=== PATIENT | female | born 1995 | race Caucasian/White ===

== ENCOUNTER 2017-08-12 08:39 | Observation (INO) ==
[2017-08-12 09:31] LABS: Amphetamine Screen,Urine Negative ng/mL (Cutoff=1000); Barbiturate Screen,Urine Negative ng/mL (Cutoff=200); Benzodiazepines Screen,Urine Negative ng/mL (Cutoff=200); Cannabinoid Screen,Urine Negative ng/mL (Cutoff = 50); Cocaine Screen,Urine Negative ng/mL (Cutoff= 300); Opiate Screen,Urine Negative ng/mL (Cutoff=300); Phencyclidine Screen,Urine Negative ng/mL (Cutoff=25)
[2017-08-12 09:35] LABS: Bilirubin,Urine Negative (Negative); Blood,Urine Negative (Negative); Clarity,Urine Cloudy (Clear); Color,Urine Yellow (Yellow); Glucose,Urine (UA) Normal (Normal); Ketones,Urine Negative (Negative); Leukocyte Esterase,Urine Negative (Negative); Nitrite,Urine Negative (Negative); Protein,Urine 100 mg/dL (Neg-Trace); Urobilinogen,Urine Normal (Normal)
[2017-08-12 09:37] LABS: Bacteria,Urine Moderate per hpf (None-Few); Hyaline Casts,Urine None Seen per lpf (None-Few); RBC,Urine 0-3 per hpf (0-3); Squamous Epithelial Cell,Urine Many per lpf (None-Few)
[2017-08-12 09:51] LABS: Amorphous Sediment,Urine Few (Few); Mucus,Urine Few (Few)
--- NOTE | 2017-08-12 11:08 | OB/GYN Progress Note ---
Date of Encounter: 08/12/17 Time of Encounter: 11:05 - Assessment and Plan (1) 36 weeks gestation of Current Visit: Yes Status: Acute (2) NST (non-stress test) reactive Current Visit: Yes Status: Acute (3) False labor Current Visit: Yes Status: Acute SVE 1/50/high, Negative pooling, negative nitrazine, negative fern. Discharge home with precautions. Subjective - Subjective Interval history: 22 year-old presenting at 36w4d with c/o leaking small amounts of fluid since last evening at 1930. She also c/o contractions that have been occuring on and off for the last month or so. She reports they were every [address] her this am but have decreased since she arrived in triage. Antepartum ROS: loss of fluid, movement normal, contractions, no vaginal bleeding Objective - Vital Signs Vital Signs: Intake and Output 08/11/17 08/12/17 08/12/17 23:59 07:59 15:59 Other: Weight 94 kg Patient Weight 08/12/17 23:59 Weight 94 kg - Exam FHR: category 1 FHR comments: NST reactive Auscultation: bilateral: normal Abdomen: Present: soft, gravid Uterus: Absent: tenderness Cervical dilation: 1 Cervix effacement: 50 station: high Comments: SSE with small amount thin, white, discharge. No pooling, negative nitrazine. Negative fern. - Labs Labs: Abnormal lab results Urine Clarity Cloudy (Clear) A 08/12/17 09:05 Urine Protein 100 mg/dL (Neg-Trace) H 08/12/17 09:05 Urine Microscopic WBC 5-15 per hpf (0-3) H 08/12/17 09:05 Ur Squamous Epith Cells Many per lpf (None-Few) H 08/12/17 09:05 Urine Bacteria Moderate per hpf (None-Few) H 08/12/17 09:05
== END 2017-08-12 11:15 | disposition home or self-care (01) ==
LOC: 1NENULAB
PROVIDERS: ADMIT Student in an Organized Health Care Education/Training Program; ATTEND Student in an Organized Health Care Education/Training Program

== ENCOUNTER 2017-08-19 17:27 | Observation (INO) ==
[2017-08-19 16:07] LABS: Bilirubin,Urine Negative (Negative); Blood,Urine Negative (Negative); Color,Urine Yellow (Yellow); Glucose,Urine (UA) Normal (Normal); Ketones,Urine Negative (Negative); Leukocyte Esterase,Urine Negative (Negative); Nitrite,Urine Negative (Negative); PH,Urine 6.5 pH Units (5.0-8.0); Protein,Urine 100 mg/dL (Neg-Trace); Specific Gravity,Urine 1.019 (1.010-1.025); Urobilinogen,Urine Normal (Normal)
[2017-08-19 16:08] LABS: Bacteria,Urine Few per hpf (None-Few); Hyaline Casts,Urine None Seen per lpf (None-Few); RBC,Urine 0-3 per hpf (0-3); Squamous Epithelial Cell,Urine Many per lpf (None-Few)
[2017-08-19 16:12] LABS: Basophils % 0.1 %; Eosinophils % 0.4 %; Hematocrit 31.5 % (35.3-44.9); Hemoglobin 10.1 g/dL (11.5-15.4); Immature Granulocytes % 0.6 % (0-4); Lymphocytes # 1.9 K/mcL (0.6-4.6); Lymphocytes % 27.5 %; Mean Corpuscular HGB Conc 32.1 g/dL (31.6-35.5); Mean Corpuscular Hemoglobin 25.6 pg (28.0-33.3); Mean Corpuscular Volume 79.7 fL (83.0-100.0); Mean Platelet Volume 12.4 fL (9.4-12.4); Monocytes # 0.5 K/mcL (0.0-1.3); Monocytes % 6.9 %; Neutrophils # 4.5 K/mcL (1.6-8.9); Platelet Count 190 K/mcL (140-400); Red Blood Count 3.95 M/mcL (3.82-4.97); Red Cell Distribution Width 13.9 % (11.5-14.5); Segmented Neutrophils % 64.5 %
[2017-08-19 16:18] LABS: Protein/Creatinine Ratio,Urine 1.27 mg/mg (0.00-0.20)
[2017-08-19 16:19] LABS: Yeast,Urine Few per hpf (None Seen)
[2017-08-19 16:20] LABS: Clarity,Urine Slightly Hazy (Clear)
[2017-08-19 16:32] LABS: Alanine Aminotransferase 12 Units/L (7-52); Aspartate Amino Transferase 21 Units/L (13-39); BUN/Creatinine Ratio 11 (6-26); Blood Urea Nitrogen 8 mg/dL (6-20); Lactate Dehydrogenase 165 Units/L (140-271); Uric Acid 5.4 mg/dL (2.3-7.6); eGFR For African Americans > 60 (> 60); eGFR For Non-African Americans > 60 (> 60)
[~2017-08-19 17:27] MED LIST: Famotidine 20 MG/2 ML VIAL IVP PRN; Metoclopramide 10 MG/2 ML VIAL IVP PRN; Naloxone 0.4 MG/ML INJ IVP PRN; Ondansetron 4 MG/2 ML VIAL IVP PRN; miSOPROStol 25 MCG TABLET PO PRN
--- NOTE | 2017-08-19 18:02 | OB/GYN History & Physical ---
Date of Encounter: 08/19/17 Time of Encounter: 17:59 Assessment and Plan (1) 37 weeks gestation of Current visit: Yes Status: Acute Admit to labor and delivery for induction secondary to protein/creatinin ratio of 1.27 GBS negative Intermittent auscultation for monitoring until epidural, and continuous monitoring per protocol Cytotec, pope, consider pitocin when able for induction of labor Nubain and epidural as desired Anticipate (2) PIH ( induced hypertension) Current visit: Yes Status: Acute Admits to labor and delivery Blood pressure is currently stable, if blood pressures increase will consider starting labetalol Cervical Pope, and Cytotec Encourage patient to use birthing ball Nubain and epidural as desired Anticipate Qualifiers: Trimester: third trimester Qualified Code(s): O13.3 - Gestational [ -induced] hypertension without significant proteinuria, third trimester (3) Gestational diabetes Current visit: Yes Status: Acute Qualifiers: Gestational diabetes mellitus control: diet-controlled Trimester: third trimester Qualified Code(s): O24.410 - Gestational diabetes mellitus in , diet controlled History of Present Illness Chief complaint: PIH evaluation HPI: Ms. Puga is a 22 year old female at 37 4/7 weeks gestation who presents to labor and delivery for PIH evaluation. She was at her PN visit and found to be hypertensive in the 160s systolic with 500 protein in her urine. Pt evaluated in L&D and found to have a Protein/Creatinin ratio of 1.27 and subsequently admitted for induction of labor. Her has been complicated by DM, she has not had HTN or been on antihypertensives during this . She states that earlier she had some changes in her vision, but those have resolved now. She also states she felt dizzy and worked up when she arrived but she she feels better now. She states that her mucous plug passed Wednesday. She has occasional contractions. No fluid or blood discharge vaginally. B/l pedal edema. Positive movement. Denies dizziness, CP, SOB, abd pain, n/v, dysuria. Blood Type O+ RPR negative Hep C non-reactive GBS negative Varicella IgG Antibody negative Rubella immune Past Med Surg Social Fam HX - Past Medical History Medical history: diabetes Psychiatric history: anxiety, depression - Past Surgical History Surgical History: other - Social History Smoking Status: Former smoker Smokeless Tobacco Status: No Alcohol use: none Drug use: none - Family History Father Living Status: Still Living Hx Family Cardiac Disorders: No Hx Family Respiratory Disorders: No Hx Family Cancer: No Hx Family GI Disorders: No Hx Family Genitourinary Disorders: No Hx Family Endocrine Disorder: Yes (diabetes) Hx Family Musculoskeletal Disorders: No Hx Family Neuromuscular Disorders: No Hx Family Neurologic Disorders: No Hx Family HEENT Disorders: No Hx Family Autoimmune Disorders: No Hx Family Reproductive Disorders: No Hx Family Psychosocial Disorders: No Hx Family Medical Disorders: No Obstetrical History - Pregnancies : 1 Para: 0 Term: 0 : 0 Ab's: 0 Livin Medications and Allergies No Known Home Drugs 08/12/17 [History] 3 Allergy/AdvReac Type Severity Reaction Status Date / Time No Known Allergies Allergy Verified 08/12/17 09:42 Review of System OB All systems PM: reviewed and no additional remarkable complaints except as stated Exam - Constitutional Constitutional: well developed, well nourished, no acute distress, average body habitus - HEENT HEENT: EOMI, PERRL, Normocephaly, Mucus Membranes Moist - Neck Neck exam: full ROM, normal inspection, trachea midline - Lungs Respiratory exam: CTAB - Cardiovascular Cardiovascular exam: RRR, +S1, +S2 - Abdomen Abdomen: Present: bowel sounds normal, gravid, non tender - Extremities Extremities exam: full ROM, normal capillary refill, normal inspection, pedal edema, radial pulses palpable and symmetrical Deep Tendon Reflex Grade: 2+ Normal - Vagina Vagina: Present: normal moisture - Cervix Dilation: 1 Effacement: 50 Station: -2 - Uterus Uterus exam: Present: normal size, normal contour - Anus/Rectum Anus/Rectum: Present: normal perianal skin Results Result Diagrams: 08/19/17 15:20 08/19/17 15:20 Abnormal lab results Hgb 10.1 g/dL (11.5-15.4) L 08/19/17 15:20 Hct 31.5 % (35.3-44.9) L 08/19/17 15:20 MCV 79.7 fL (83.0-100.0) L 08/19/17 15:20 MCH 25.6 pg (28.0-33.3) L 08/19/17 15:20 Urine Protein 100 mg/dL (Neg-Trace) H 08/19/17 15:20 Urine Microscopic WBC 5-15 per hpf (0-3) H 08/19/17 15:20 Ur Squamous Epith Cells Many per lpf (None-Few) H 08/19/17 15:20 Urine Yeast Few per hpf (None Seen) H 08/19/17 15:20 Protein/Creatinin Ratio 1.27 mg/mg (0.00-0.20) H 08/19/17 15:20 Urine Total Protein 165 mg/dL (1-14) H 08/19/17 15:20 All other labs normal. - VTE Reasons for not Prescribing Prophylaxis: Treatment not Indicated - Low risk for VTE
[2017-08-19] MEDS: Ringers Solution, Lactated 1,000 ML IVC SCH ×2 (18:43→23:41)
--- NOTE | 2017-08-19 19:09 | OB Labor Progress Note ---
Date of Encounter: 08/19/17 Time of Encounter: 19:06 Labor Progress Note - Subjective Subjective: Pt with no pain or contractions, starting induction - Cervix Cervix: 1/50/-2 - Heart Tones Heart Tones: 125/moderate/+accels/-decles - Philomath Philomath: irregular - Interventions Interventions: cervical pope placed with 60cc balloon - Plan Plan: Cytotec 50po cervical pope placed Encourage use of birthing ball clear liquids GBS negative anticipate
[2017-08-19] MEDS: *HR* Nalbuphine 20 MG/ML AMPUL IVP PRN (20:22)
[2017-08-19] MEDS ORDERED: Mag Hydrox/Al Hydrox/Simeth 30 ML UDC PO PRN (22:38)
[2017-08-19] MEDS ORDERED: Famotidine 20 MG/2 ML VIAL IVP SCH (22:45)
[2017-08-19] MEDS ORDERED: Oxytocin 20 units/ LR 1000 mL 20 UNIT/1,000 ML BAG IVC ONE (23:21)
--- NOTE | 2017-08-19 23:21 | OB Labor Progress Note ---
Date of Encounter: 08/20/17 Time of Encounter: 23:19 Labor Progress Note - Subjective Subjective: Mark came out. Pt states she is comfortable, feeling occasional contractions. - Vital Signs Vital Signs: BPs 130s/80s - Cervix Cervix: 5/75/-2 - Heart Tones Heart Tones: FHR 140s-150s, category 1 tracing - Oark Oark: irregular contractions - Interventions Interventions: none - Plan Plan: Plan to start pitocin, will increase as tolerated. encourage frequent repositioning, nubain and epidural as desired Antiipate .
[2017-08-19] MEDS ORDERED: Oxytocin 20 units/ LR 1000 mL 20 UNIT/1,000 ML BAG IVC SCH (23:30)
[2017-08-20] MEDS: *HR* Nalbuphine 20 MG/ML AMPUL IVP PRN (00:56)
--- NOTE | 2017-08-20 03:39 | OB Labor Progress Note ---
Date of Encounter: 08/20/17 Time of Encounter: 03:36 Labor Progress Note - Subjective Subjective: Pt coping well with contractions. - Cervix Cervix: 5-6/75/-2 - Heart Tones Heart Tones: 135/moderate/+accels/-decels - Estancia Estancia: 2-5 - Interventions Interventions: AROM for blood tinged clear fluid. IUPC placed without difficulty, - Plan Plan: Continue to increase pitocin per policy Epidural as desires Frequent repositioning encouraged Anticipate >
[2017-08-20] MEDS ORDERED: *HR* Ropivacaine/PF 0.2% 20 ML VIAL ONE (04:21)
[2017-08-20] MEDS ORDERED: Epidural Premix (fent/bupiv) 110 ML EP ONE ×2 (04:23→10:17)
[2017-08-20] MEDS ORDERED: *HR* FentaNYL (PF) 100 MCG/2 ML VIAL ONE (04:23)
--- NOTE | 2017-08-20 04:48 | Anesthesia Evaluation PreOp ---
Date of Encounter: 08/20/17 Time of Encounter: 04:46 - Past History Planned Operation: anushka Cardiac History: Denies any Significant Hx Pulmonary History: Other (seasonal allergies) [employer] History: Denies Any Significant HX Other Medical History: Diabetes Type II (gestational) Anesthesia History: No Prior Anesthetic Complications, Past Anesthesia : Yes Alcohol Use: none Drug use: none Medications and Allergies No Known Home Drugs 08/12/17 [History] 3 Allergy/AdvReac Type Severity Reaction Status Date / Time No Known Allergies Allergy Verified 08/12/17 09:42 - Meds/Allergy Pre-op Review Medications Reviewed: Yes Allergies Reviewed: Yes Beta Blockers on Current Med List: No Anesthesia Results - Labs 08/19/17 15:20 08/19/17 15:20 Anesthesia Exam O2 Sat Height 1.57 m Weight 96.7 kg Height: 62 Weight: 96 - HEENT Pupil (Motor): Pupils equal Mallampati: III Teeth: Normal Oral Opening: Greater than 3 - [employer] LOC: Oriented [employer] Motor: Normal RUE, Normal LUE, Normal RLE, Normal LLE, Normal Face [employer] Sensory: Normal: RUE, LUE, RLE, LLE, Face - Cardiac Rhythm: Regular Murmur: None JVD: No Carotid Bruit: No - Pulmonary Breath Sounds: bilateral Clear Respiratory Effort: Symmetrical Anesthesia Assess/Plan ASA Score: 2 Modified Goldston Scale for Level of Consciousness: Cooperative, oriented, and tranquil Anesthetic Plan: Regional Monitoring Plan: Standard Monitors
[2017-08-20] MEDS ORDERED: *HR* FentaNYL (PF) 100 MCG/2 ML VIAL EP ONE (04:49)
[2017-08-20] MEDS ORDERED: *HR* Ropivacaine/PF 0.2% 20 ML VIAL EP ONE (04:49)
[2017-08-20] MEDS ORDERED: EPHEDrine 50 MG/ML VIAL IVP PRN (04:49)
--- NOTE | 2017-08-20 04:55 | Anesthesia Procedures ---
Date of Encounter: 08/20/17 Time of Encounter: 04:52 Procedures: Anesthesia - Epidural/Spinal Patient ID/Chart reviewed: Yes Patient examined: Yes OB Eval: : 1 OB Eval: Hx Para: 0 OB Eval: Dilated at (cm): 4 OB Eval: Contractions: Non-stressed pattern Consent Obtained: Yes Supplemental Oxygen: None/Room Air Site Prep: Aseptic Technique Patient position: upright Local Anesthetic: Lidocaine 1% Amount of Local Anesthetic used: 3 Touhy Needle Gauge: 18 Touhy Needle Depth (cm): 6 Catheter Depth at Skin (cm): 13 Test Dose (1.5% Lido + Epi): Volume given (mls): 3 Test Dose Result: Negative Loading Dose: Fentanyl (mcg): 100 Loading Dose: Other: 4ml ropivicaine 0.2% Loading Dose Administered: Thru Touhy Needle Infusion Med: 0.125% Bupivacaine w/ 2 mcg/ml Fentanyl Infusion Rate (mls/hr): [address]: Tegaderm Interspace Used: L3-L4 Loss of Resistance (AUBREE): Yes Blood: No CSF: No Paresthesia: No
[2017-08-20] MEDS ORDERED: Epidural Premix (fent/bupiv) 110 ML EP SCH (05:00)
[2017-08-20] MEDS: Ringers Solution, Lactated 1,000 ML IVC SCH (08:23)
--- NOTE | 2017-08-20 08:45 | Anesthesia Progress Note ---
Date of Encounter: 08/20/17 Time of Encounter: 08:43 Anesthesia Note - Note Note: Called to patient bedside with complaints of lower left sided abdominal cramping at 5 of 10 on the pain scale. Epidural 15cm at the skin with blood- tinged fluid under tegaderm site. Bolus ropivicaine 0.5% 7ml administered. VSS and FHT stable. 08/20/17 08:43
--- NOTE | 2017-08-20 11:25 | Anesthesia Progress Note ---
Date of Encounter: 08/20/17 Time of Encounter: 10:45 Anesthesia Note - Note Note: 08/20/17 11:23 Follow up with patient revealed continued discomfort of now the entire abdomen. Fluid gathering under tegaderm. Discontinued epidural catheter with patients permission to repeat epidural placement. See procedure note.
--- NOTE | 2017-08-20 11:28 | Anesthesia Procedures ---
Date of Encounter: 08/20/17 Time of Encounter: 10:50 Procedures: Anesthesia - Epidural/Spinal Patient ID/Chart reviewed: Yes Patient examined: Yes OB Eval: Gestational age: 37.4 OB Eval: : 1 OB Eval: Hx Para: 0 OB Eval: Dilated at (cm): 5 OB Eval: Contractions: Non-stressed pattern Consent Obtained: Yes Supplemental Oxygen: None/Room Air Site Prep: Aseptic Technique, Sterile prep and drape Patient position: upright Local Anesthetic: Lidocaine 1% Amount of Local Anesthetic used: 3 Touhy Needle Gauge: 18 Touhy Needle Depth (cm): 6 Catheter Depth at Skin (cm): 15 Test Dose (1.5% Lido + Epi): Volume given (mls): 3 Test Dose Result: Negative Loading Dose: Other: Ropivicaine 0.5% 5ml Loading Dose Administered: Thru Catheter Infusion Med: 0.125% Bupivacaine w/ 2 mcg/ml Fentanyl Infusion Rate (mls/hr): [address]: Tegaderm, Tape Interspace Used: L3-L4 Loss of Resistance (AUBREE): Yes Blood: No CSF: No Paresthesia: No Procedure: Previous THALIA not providing adequate patient relief. Catheter discontinued intact. New THALIA catheter placed in upright position 1st pass without any immediate noted complications. VSS and FHT stable throughout. Vitals + FHT's: BP 145/74 P 110 R 18
--- NOTE | 2017-08-20 12:34 | OB Labor Progress Note ---
Date of Encounter: 08/20/17 Time of Encounter: 12:30 Labor Progress Note - Subjective Subjective: Pt reports some pressure with contractions - Cervix Cervix: 8/100/0 - Heart Tones Heart Tones: Category II, periods of minimal variability and variable decelerations - Vista Vista: 2-3 minutes - Interventions Interventions: Pt repositioned to left lateral with peanut ball - Plan Plan: Anticipate
--- NOTE | 2017-08-20 14:05 | OB/GYN Procedure Note ---
Delivery - Delivery Date: 08/20/17 Provider: Monica Sage Intrapartum events: none Delivery induction: AROM, oxytocin, pope, misoprostol Delivery monitor: external FHT, internal uterine Anesthesia: epidural Estimated Blood Loss: 300 - Infant (s) A Infant Delivery Date: 08/20/17 Delivery Time: 13:35 Presentation: vertex Position: OA Route of delivery: Gender: Male Viability: Viable Pounds: 8 Ounces: 9 Weight Gram: 3.89 kg at 1 minute: 3 at 5 mins: 8 Shoulder Dystocia: encountered Shoulder Dystocia Maneuvers: Leroy maneuver, suprapubic pressure, Calderon Screw maneuver Shoulder dystocia time elapsed: 30 seconds Specimens collected: cord blood, venous cord gases, arterial cord gases Placenta: spontaneous Cord: 3 umbilical vessels - Repair Episiotomy: none Laceration Description: None - Complications Delivery complications: none Delivery comments: Pt pushed effectively to delivery of head. Loose nuchal x1 reduced easily. A shoulder dystocia was encountered and leroy maneuver was employed and Dr. Barrett and nursery were called for assistance. Suprapubic pressure was then applied but was not successful at releasing shoulder. The was in ZIA position. At this time I inserted my hand along the posterior scapula of the 's right shoulder and applied gentle forward pressure to rotate the to direct OA position. At this time maternal efforts were resumed and the infant was delivered. The infant was non-vigorous so the cord was clamped and cut immediately and the infant was handed off to nursery staff in attendance. The placenta delivered spontaneous and intact. The vagina and perineum were inspected. No lacerations noted. EBL 300ml. Mother and infant stable in DR following procedure. Dr. Madrid was in attendance for delivery. - Disposition Mom disposition: stable in LDR [place] disposition: stable in LDR
[2017-08-20] MEDS ORDERED: Benzocaine/Menthol 56 GM AEROSOL SPRAY TP PRN (15:28)
[2017-08-20] MEDS ORDERED: Measles/Mumps/Rubella Vacc 0.5 ML VIAL SQ PRN (15:28)
[2017-08-20] MEDS ORDERED: Oxytocin 20 units/ LR 1000 mL 20 UNIT/1,000 ML BAG IVC SCH (15:28)
[2017-08-20] MEDS ORDERED: Acetaminophen 325 MG TABLET PO PRN (15:28)
[2017-08-20] MEDS: Ibuprofen 600 MG TABLET PO PRN (18:20)
[2017-08-21] MEDS: Ibuprofen 600 MG TABLET PO PRN ×2 (02:09→08:09)
[2017-08-21 08:02] VITALS: BP 131/86
--- NOTE | 2017-08-21 08:14 | Discharge Summary ---
Date of Encounter: 08/21/17 Time of Encounter: 08:14 - Discharge Diagnosis (1) Normal vaginal delivery Priority: Primary Status: Acute Comments: Pt doing well, meeting post milestones. Pt is breast feeding, which is going well. Cramping is improving and relieved with ibuprofen. SBP in 120s-130s. Mood is happy, appropriate, affect normal Will be discharged home in stable condition with prescriptions for ibuprofen, colace and iron. (2) 37 weeks gestation of Priority: Secondary Status: Resolved (3) PIH ( induced hypertension) Priority: Secondary Status: Resolved Qualifiers: Trimester: third trimester Qualified Code(s): O13.3 - Gestational [ -induced] hypertension without significant proteinuria, third trimester (4) Gestational diabetes Priority: Secondary Status: Resolved Comments: may transition to regular diet. Qualifiers: Gestational diabetes mellitus control: diet-controlled Trimester: third trimester Qualified Code(s): O24.410 - Gestational diabetes mellitus in , diet controlled - Discharge Medications Prescriptions: Ibuprofen [Motrin] 600 mg PO Q6HR PRN 30 Days #120 tablet PRN Reason: Cramping Docusate [Colace] 100 mg PO BID 30 Days #60 capsule Ferrous Sulfate 325 mg PO DAILY 30 Days #30 tablet Home Medications: Benzocaine/Menthol Reynolds [Dermoplast Reynolds] 1 appl TP QID PRN aerosol 08/21/17 [Rx] Docusate [Colace] 100 mg PO BID 30 Days #60 capsule 08/21/17 [Rx] Ferrous Sulfate 325 mg PO DAILY 30 Days #30 tablet 08/21/17 [Rx] Ibuprofen [Motrin] 600 mg PO Q6HR PRN 30 Days #120 tablet 08/21/17 [Rx] Vit/FA 1 each PO DAILY tablet 08/21/17 [Rx] Allergies/Adverse Reactions: 3 Allergy/AdvReac Type Severity Reaction Status Date / Time No Known Allergies Allergy Verified 08/12/17 09:42 Data Procedures and tests throughout hospitalization: Laboratory Tests 08/19/17 08/19/17 08/19/17 15:20 15:20 15:20 WBC 6.9 RBC 3.95 Hgb 10.1 L Hct 31.5 L MCV 79.7 L MCH 25.6 L MCHC 32.1 RDW 13.9 Plt Count 190 MPV 12.4 Immature Gran % 0.6 Seg Neutrophils % 64.5 Lymphocytes % 27.5 Monocytes % 6.9 Eosinophils % 0.4 Basophils % 0.1 Neutrophils # 4.5 Lymphocytes # 1.9 Monocytes # 0.5 Eosinophils # 0.0 Basophils # 0.0 BUN 8 Creatinine 0.70 Est GFR ( Amer) > 60 Est GFR (Non-Af Amer) > 60 BUN/Creatinine Ratio 11 Uric Acid 5.4 AST 21 ALT 12 Lactate Dehydrogenase 165 Urine Color Yellow Urine Clarity Slightly Hazy Urine pH 6.5 Ur Specific [place] 1.019 Urine Protein 100 H Urine Glucose (UA) Normal Urine Ketones Negative Urine Blood Negative Urine Nitrite Negative Urine Bilirubin Negative Urine Urobilinogen Normal Ur Leukocyte Esterase Negative Urine Microscopic RBC 0-3 Urine Microscopic WBC 5-15 H Ur Squamous Epith Cells Many H Urine Bacteria Few Hyaline Casts None Seen Urine Yeast Few H Ur Culture Indicated? NO Urine Creatinine Protein/Creatinin Ratio Urine Total Protein 08/19/17 15:20 WBC RBC Hgb Hct MCV MCH MCHC RDW Plt Count MPV Immature Gran % Seg Neutrophils % Lymphocytes % Monocytes % Eosinophils % Basophils % Neutrophils # Lymphocytes # Monocytes # Eosinophils # Basophils # BUN Creatinine Est GFR ( Amer) Est GFR (Non-Af Amer) BUN/Creatinine Ratio Uric Acid AST ALT Lactate Dehydrogenase Urine Color Urine Clarity Urine pH Ur Specific [place] Urine Protein Urine Glucose (UA) Urine Ketones Urine Blood Urine Nitrite Urine Bilirubin Urine Urobilinogen Ur Leukocyte Esterase Urine Microscopic RBC Urine Microscopic WBC Ur Squamous Epith Cells Urine Bacteria Hyaline Casts Urine Yeast Ur Culture Indicated? Urine Creatinine 130 Protein/Creatinin Ratio 1.27 H Urine Total Protein 165 H Date of admission: 08/19/17 17:28 Primary care physician: PCP NONE Consults: 08/20/17 15:28 Consult to Account Executive Trainee [CONS] Routine Comment: Vaginal delivery, consult needed Discharging clinician: Maria Luz Lynn Anticipated date of discharge: 08/21/17 - Patient Status Disposition: Home, Self-Care Condition: Good Functional capacity at discharge: independent ambulation Overall status at discharge: patient is progressing back to baseline - Discharge Instructions Follow Up With: NONE,PCP [Primary Care Provider] - Monica Sage CNM [Non-Partnered Physician] - - Diet and Activity Activity: increase activity as tolerated Diet: advance to your usual diet Hospital Course INTEGRATED SPECIALIST Reason for admission: other (PIH, Induction) Discharge diagnosis: other (Vaginal Delivery) Hospital course: Delivery Date: 08/20/17 Provider: Monica Sage Intrapartum events: none Delivery induction: AROM, oxytocin, pope, misoprostol Delivery monitor: external FHT, internal uterine Anesthesia: epidural Estimated Blood Loss: 300 - Infant (s) A Delivery Date: 08/20/17 Infant Delivery Time: 13:35 Presentation: vertex Position: OA Route of delivery: Gender: Male Viability: Viable Pounds: 8 Ounces: 9 Weight Gram: 3.89 kg at 1 minute: 3 at 5 mins: 8 Shoulder Dystocia: encountered Shoulder Dystocia Maneuvers: Leroy maneuver, suprapubic pressure, Calderon Screw maneuver Shoulder dystocia time elapsed: 30 seconds Specimens collected: cord blood, venous cord gases, arterial cord gases Placenta: spontaneous Cord: 3 umbilical vessels - Repair Episiotomy: none Laceration Description: None - Complications Delivery complications: none Delivery comments: Pt pushed effectively to delivery of head. Loose nuchal x1 reduced easily. A shoulder dystocia was encountered and leroy maneuver was employed and Dr. Barrett and nursery were called for assistance. Suprapubic pressure was then applied but was not successful at releasing shoulder. The infant was in ZIA position. At this time I inserted my hand along the posterior scapula of the infant's right shoulder and applied gentle forward pressure to rotate the infant to direct OA position. At this time maternal efforts were resumed and the was delivered. The infant was non-vigorous so the cord was clamped and cut immediately and the was handed off to nursery staff in attendance. The placenta delivered spontaneous and intact. The vagina and perineum were inspected. No lacerations noted. EBL 300ml. Mother and infant stable in DR following procedure. Dr. Madrid was in attendance for delivery. Time Attestation: Total time spent providing and/or coordinating discharge services: Exam - Constitutional Vitals: Temp Pulse Resp BP Pulse Ox 97.6 F 75 18 131/86 96 08/21/17 08:01 08/21/17 08:01 08/21/17 08:01 08/21/17 08:01 08/21/17 03:30 General appearance IM: cooperative, A&O X 3, pleasant, no acute distress, answers questions appropriately - Respiratory Respiratory exam: Present: CTAB - Cardiovascular Cardiovascular exam IM: Present: RRR, +S1, +S2. Absent: diastolic murmur, gallop, systolic murmur - GI/Abdominal GI/Abdominal exam IM: normal bowel sounds, soft - External exam: normal external exam Uterine Tone: Firm Uterus Position: 3 Fingers Below Umbilicus, Midline - Extremities Exam Extremities exam IM: Present: normal capillary refill, normal inspection, pedal edema (trace), radial pulses palpable and symmetrical - Neurological Exam Neurological exam: alert, oriented X3, reflexes normal (2+) - Psychiatric Additional comments: Normal mood and affect, pleasant, cooperative, good eye contact, active in care of child, happy - VTE Reasons for not Prescribing Prophylaxis: Treatment not Indicated - Low risk for VTE
[2017-08-21] MEDS ORDERED: Prenatal Vit/FA 1 EACH TABLET PO SCH (09:00)
[2017-08-21 09:14] LABS: Amphetamine Screen,Urine Negative ng/mL (Cutoff=1000); Barbiturate Screen,Urine Negative ng/mL (Cutoff=200); Benzodiazepines Screen,Urine Negative ng/mL (Cutoff=200); Cannabinoid Screen,Urine Negative ng/mL (Cutoff = 50); Cocaine Screen,Urine Negative ng/mL (Cutoff= 300); Opiate Screen,Urine Negative ng/mL (Cutoff=300); Phencyclidine Screen,Urine Negative ng/mL (Cutoff=25)
== END 2017-08-21 14:00 | disposition home or self-care (01) ==
LOC: 1NENULAB → 1NENUOBS 08-20 15:25
PROVIDERS: ADMIT Obstetrics & Gynecology; ATTEND Obstetrics & Gynecology

== ENCOUNTER → 2021-12-15 20:35 | Observation (INO) ==
[2021-12-15] MEDS: Acetaminophen 325 MG TABLET PO PRN ×3 (05:40→18:01)
[2021-12-15] MEDS: *HR* Metformin 500 MG TABLET PO SCH ×2 (10:09→18:02)
[~2021-12-15 20:35] MED LIST changes: +Aspirin 81 MG TAB.CHEW PO SCH; -Famotidine 20 MG/2 ML VIAL IVP PRN; -Metoclopramide 10 MG/2 ML VIAL IVP PRN; -Naloxone 0.4 MG/ML INJ IVP PRN; -Ondansetron 4 MG/2 ML VIAL IVP PRN; +Prenatal Vit/FA 1 EACH TABLET PO SCH; -miSOPROStol 25 MCG TABLET PO PRN
== END | disposition home or self-care (01) ==
LOC: 1NENULAB
PROVIDERS: ADMIT Advanced Practice Midwife; ATTEND Advanced Practice Midwife

== ENCOUNTER → 2022-01-15 20:56 | Observation (INO) ==
[2022-01-15 18:08] LABS: Basophils % 0.1 %; Eosinophils # 0.1 K/mcL (0.0-0.6); Eosinophils % 1.3 %; Hematocrit 36.7 % (35.3-44.9); Hemoglobin 12.5 g/dL (11.5-15.4); Immature Granulocytes % 0.4 % (0-4); Lymphocytes % 19.2 %; Mean Corpuscular HGB Conc 34.1 g/dL (31.6-35.5); Mean Platelet Volume 12.2 fL (9.4-12.4); Monocytes # 0.8 K/mcL (0.0-1.3); Monocytes % 7.3 %; Neutrophils # 7.6 K/mcL (1.6-8.9); Platelet Count 203 K/mcL (140-400); Red Blood Count 4.17 M/mcL (3.82-4.97); Red Cell Distribution Width 13.1 % (11.5-14.5); Segmented Neutrophils % 71.7 %; White Blood Count 10.6 K/mcL (4.3-11.1)
[2022-01-15 18:11] LABS: Protein/Creatinine Ratio,Urine 0.71 mg/mg (0.00-0.20)
[2022-01-15 18:21] LABS: Alanine Aminotransferase 23 Units/L (7-52); Aspartate Amino Transferase 27 Units/L (13-39); BUN/Creatinine Ratio 13 (6-26); Blood Urea Nitrogen 7 mg/dL (6-20); Lactate Dehydrogenase 186 Units/L (140-271); Uric Acid 3.2 mg/dL (2.3-7.6)
[2022-01-15 20:23] VITALS: TEMP 98
== END | disposition home or self-care (01) ==
LOC: 1NENULAB
PROVIDERS: ADMIT Obstetrics & Gynecology; ATTEND Obstetrics & Gynecology

== ENCOUNTER 2022-01-20 12:42 | Inpatient (IN) ==
[2022-01-20 12:13] LABS: Basophils % 0.3 %; Eosinophils % 0.4 %; Hematocrit 34.8 % (35.3-44.9); Immature Granulocytes % 0.4 % (0-4); Lymphocytes # 1.5 K/mcL (0.6-4.6); Lymphocytes % 19.3 %; Mean Corpuscular HGB Conc 34.5 g/dL (31.6-35.5); Mean Corpuscular Hemoglobin 30.1 pg (28.0-33.3); Mean Corpuscular Volume 87.2 fL (83.0-100.0); Mean Platelet Volume 11.7 fL (9.4-12.4); Monocytes # 0.6 K/mcL (0.0-1.3); Neutrophils # 5.7 K/mcL (1.6-8.9); Platelet Count 223 K/mcL (140-400); Red Blood Count 3.99 M/mcL (3.82-4.97); Red Cell Distribution Width 13.1 % (11.5-14.5); Segmented Neutrophils % 71.6 %; White Blood Count 7.9 K/mcL (4.3-11.1)
[2022-01-20 12:33] LABS: Alanine Aminotransferase 22 Units/L (7-52); Aspartate Amino Transferase 17 Units/L (13-39); BUN/Creatinine Ratio 13 (6-26); Blood Urea Nitrogen 7 mg/dL (6-20); Lactate Dehydrogenase 146 Units/L (140-271)
[~2022-01-20 12:42] MED LIST changes: +*HR* Nalbuphine 10 MG/ML AMPUL IV PRN; -Aspirin 81 MG TAB.CHEW PO SCH; +Famotidine 20 MG/2 ML VIAL IVP PRN; +Metoclopramide 10 MG/2 ML VIAL IVP PRN; +Naloxone 0.4 MG/ML INJ IVP PRN; -Prenatal Vit/FA 1 EACH TABLET PO SCH
[2022-01-20] MEDS ORDERED: miSOPROStoL 25 MCG TABLET PO SCH (13:00)
[2022-01-20] MEDS ORDERED: Calcium Gluconate 1,000 MG/10 ML VIAL IVP PRN (13:45)
[2022-01-20] MEDS ORDERED: Magnesium Sulf 20 gm/SW 500mL 4 GM/100 ML BAG IV ONE (13:49)
[2022-01-20] MEDS: Ringers Solution, Lactated 1,000 ML IVC SCH ×2 (14:15→23:42)
[2022-01-20] MEDS: Magnesium Sulf 20 gm/SW 500mL 20 GM/500 ML IV.SOLN IVC SCH ×2 (14:39→23:40)
[2022-01-20 14:48] LABS: Creatinine,Urine 137 mg/dL
[2022-01-20 14:49] LABS: Amphetamine Screen,Urine Negative ng/mL (Cutoff=1000); Barbiturate Screen,Urine Negative ng/mL (Cutoff=200); Benzodiazepines Screen,Urine Negative ng/mL (Cutoff=200); Cannabinoid Screen,Urine Negative ng/mL (Cutoff = 50); Cocaine Screen,Urine Negative ng/mL (Cutoff= 300); Opiate Screen,Urine Negative ng/mL (Cutoff=300); Phencyclidine Screen,Urine Negative ng/mL (Cutoff=25); Protein/Creatinine Ratio,Urine 0.64 mg/mg (0.00-0.20)
[2022-01-20] MEDS ORDERED: *HR* Labetalol 20 MG/4 ML SYRINGE IVP ONE ×2 (17:16→17:18)
[2022-01-20] MEDS ORDERED: EPHEDrine 50 MG/ML VIAL IVP PRN (22:43)
[2022-01-20] MEDS ORDERED: Epidural Premix (fent/bupiv) 110 ML EP SCH (22:45)
[2022-01-20] MEDS ORDERED: Oxytocin 30 UNIT/503 ML BAG IVC SCH (23:30)
[2022-01-20] MEDS ORDERED: *HR* Norepinephrine 4 MG/4 ML VIAL IVC ONE (23:51)
[2022-01-21] MEDS: Ondansetron 4 MG/2 ML VIAL IVP PRN ×2 (00:04→08:00)
[2022-01-21] MEDS: Ringers Solution, Lactated 1,000 ML IVC SCH (02:07)
[2022-01-21] MEDS ORDERED: Ringers Solution, Lactated 1,000 ML ONE ×2 (05:40→17:10)
[2022-01-21] MEDS ORDERED: Ropivacaine/PF 0.5% 30 ML VIAL ONE (05:59)
[2022-01-21] MEDS ORDERED: Ropivacaine/PF 0.2% 20 ML VIAL ONE ×2 (05:59→08:55)
[2022-01-21] MEDS ORDERED: Lidocaine/EPI 1:200k 2% PF 20 ML VIAL ONE (06:35)
[2022-01-21] MEDS: Magnesium Sulf 20 gm/SW 500mL 20 GM/500 ML IV.SOLN IVC SCH ×2 (08:36→19:42)
[2022-01-21] MEDS ORDERED: *HR* FentaNYL (PF) 100 MCG/2 ML VIAL ONE (08:55)
[2022-01-21] MEDS ORDERED: Ibuprofen 400 MG TABLET PO PRN (11:45)
[2022-01-21] MEDS ORDERED: Lanolin 7 G OINT...G. TP PRN (12:47)
[2022-01-21] MEDS ORDERED: Oxytocin 30 UNIT/503 ML BAG IVC SCH (12:47)
[2022-01-21] MEDS ORDERED: Benzocaine/Menthol 56 GM AEROSOL SPRAY TP PRN (12:47)
[2022-01-21] MEDS ORDERED: Ondansetron ODT 4 MG TAB.RAPDIS SL PRN (12:47)
[2022-01-21] MEDS ORDERED: Calcium Gluconate 1,000 MG/10 ML VIAL IVP PRN (12:47)
[2022-01-21] MEDS: CeFAZolin 2,000 MG/120 ML BAG IVPB SCH (15:27)
[2022-01-21] MEDS: Ibuprofen 600 MG TABLET PO SCH (17:24)
[2022-01-21] MEDS: Acetaminophen 325 MG TABLET PO SCH (17:25)
[2022-01-22] MEDS: Ibuprofen 600 MG TABLET PO SCH ×3 (00:28→20:33)
[2022-01-22] MEDS: CeFAZolin 2,000 MG/120 ML BAG IVPB SCH ×3 (00:28→16:28)
[2022-01-22] MEDS: Acetaminophen 325 MG TABLET PO SCH ×4 (00:28→20:33)
[2022-01-22] MEDS: Magnesium Sulf 20 gm/SW 500mL 20 GM/500 ML IV.SOLN IVC SCH (04:31)
[2022-01-22 05:27] LABS: Basophils % 0.2 %; Eosinophils # 0.1 K/mcL (0.0-0.6); Eosinophils % 0.7 %; Hematocrit 30.4 % (35.3-44.9); Immature Granulocytes % 0.6 % (0-4); Lymphocytes # 1.9 K/mcL (0.6-4.6); Lymphocytes % 22.1 %; Mean Corpuscular HGB Conc 33.2 g/dL (31.6-35.5); Mean Corpuscular Hemoglobin 29.6 pg (28.0-33.3); Mean Corpuscular Volume 89.1 fL (83.0-100.0); Mean Platelet Volume 11.6 fL (9.4-12.4); Monocytes # 0.7 K/mcL (0.0-1.3); Neutrophils # 5.8 K/mcL (1.6-8.9); Platelet Count 187 K/mcL (140-400); Red Blood Count 3.41 M/mcL (3.82-4.97); Segmented Neutrophils % 68.4 %; White Blood Count 8.5 K/mcL (4.3-11.1)
[2022-01-22 05:28] LABS: Hemoglobin 10.1 g/dL (11.5-15.4)
[2022-01-22] MEDS ORDERED: Prenatal Vit/FA 1 EACH TABLET PO SCH (09:00)
[2022-01-23 06:34] VITALS: TEMP 98; O2SAT 99
[2022-01-23] MEDS: Acetaminophen 325 MG TABLET PO SCH (07:49)
[2022-01-23 08:01] VITALS: BP 141/102; PULSE 72
== END 2022-01-23 12:55 | disposition home or self-care (01) | DRG 798 ==
LOC: 1NENULAB → 1NENUOBS 01-21 12:42
PROVIDERS: ADMIT Student in an Organized Health Care Education/Training Program; ATTEND Student in an Organized Health Care Education/Training Program